=== PATIENT | male | born 1990 | race Caucasian/White ===

== ENCOUNTER 2023-12-03 23:53 | Emergency (ER) | payer BC, OTHER ==
[~2023-12-03] VITALS: Ht 182.9 cm; Wt 81.0 kg
[2023-12-04 00:08] VITALS: O2SAT 97
[2023-12-04] MEDS ORDERED: LIDOCAINE HCL/PF 1% 10 MG/ML 5ML VIAL INFIL ONE (00:15)
[2023-12-04] MEDS ORDERED: TETANUS, DIPHTHERIA, PERTUSSIS VAC/PF 0.5ML (>10YR OLD) IM ONE (00:15)
[2023-12-04] MEDS ORDERED: BACITRACIN ZINC OINT UDPKT TOP ONE (00:15)
[2023-12-04] MEDS ORDERED: BO1 TP (01:05)
[2023-12-04 01:20] VITALS: BP 131/69; PULSE 74; RESP 20; TEMP 98.4
== END 2023-12-04 01:25 | disposition home or self-care (01) ==
LOC: ER 23:53
DX: S61.412A Laceration without foreign body of left hand, initial encounter (principal); Z88.0 Allergy status to penicillin; X58.XXXA Exposure to other specified factors, initial encounter; Y93.89 Activity, other specified; Y92.89 Other specified places as the place of occurrence of the external cause; Y99.8 Other external cause status
CPT/HCPCS: 12001; 90471; 90715; 99283